=== PATIENT | male | born 1990 | race Caucasian/White ===

== ENCOUNTER 2022-02-08 01:11 | Emergency (ER) | payer MEDICAID, OTHER ==
[~2022-02-08] VITALS: Ht 167.6 cm; Wt 80.0 kg
[2022-02-08] MEDS ORDERED: BACITRACIN OINTMENT 30GM TUBE TOP ONE (07:05)
[2022-02-08] MEDS ORDERED: NORCO, ANEXSIA 5/325MG TABLET (HYDROcodone/ACETAMINOPHEN) PO ONE (07:05)
[2022-02-08] MEDS ORDERED: BACI500O8 TOP (07:08)
[2022-02-08] MEDS ORDERED: CEPH500C PO (07:08)
[2022-02-08] MEDS ORDERED: IBUP80TA PO (07:08)
[2022-02-08 07:24] VITALS: BP 145/71
== END 2022-02-08 07:25 | disposition home or self-care (01) ==
LOC: M ED 01:11
DX: L08.9 Local infection of the skin and subcutaneous tissue, unspecified (principal); L55.0 Sunburn of first degree; L55.1 Sunburn of second degree